=== PATIENT | female | born 1950 | race Caucasian/White ===

== ENCOUNTER → 2016-09-13 | Outpatient (CLI) | payer MEDICARE, OTHER ==
[~2016-09-13] MED LIST: RT-ALBUTEROL SULF 2.5 MG/3 ML PRE-MIX VIAL IH ONE; RT-ALBUTEROL SULF 2.5 MG/3 ML PRE-MIX VIAL ONE
== END ==
LOC: RT 15:48
PROVIDERS: ATTEND Internal Medicine
DX: R06.2 Wheezing (principal)
CPT/HCPCS: 94060; 94640; 94726; 94729

== ENCOUNTER → 2016-11-23 | Outpatient (CLI) | payer MEDICARE, OTHER ==
[~2016-11-23] MED LIST changes: +IOHEXOL 350 MG/ML 150 ML (OMNIPAQUE 350) VIAL IV ONE; +NS 100 ML (IVPB) BAG IV ONE; -RT-ALBUTEROL SULF 2.5 MG/3 ML PRE-MIX VIAL IH ONE; -RT-ALBUTEROL SULF 2.5 MG/3 ML PRE-MIX VIAL ONE
[2016-11-23 12:49] LABS: BASOPHILS % (AUTO) 1 % (0-10); EOSINOPHILS # (AUTO) 0.3 10^3/uL (0.0-0.3); EOSINOPHILS % (AUTO) 4 % (0-10); LYMPHOCYTES % (AUTO) 28 % (12-44); MEAN CORPUSCULAR HEMOGLOBIN 24 PG (25-34); MEAN CORPUSCULAR HGB CONC 33 G/DL (32-36); MEAN CORPUSCULAR VOLUME 73 FL (80-99); MEAN PLATELET VOLUME 9.8 FL (7.4-10.4); MONOCYTES # (AUTO) 0.6 X 10^3 (0.0-1.0); MONOCYTES % (AUTO) 9 % (0-12); NEUTROPHILS # (AUTO) 4.2 X 10^3 (1.8-7.8); NEUTROPHILS % (AUTO) 59 % (42-75); PLATELET COUNT 363 10^3/uL (130-400); RED BLOOD COUNT 4.96 10^6/uL (4.35-5.85); RED CELL DISTRIBUTION WIDTH 18.1 % (10.0-14.5); WHITE BLOOD COUNT 7.2 10^3/uL (4.3-11.0)
[2016-11-23 13:10] LABS: BILIRUBIN,TOTAL 0.3 MG/DL (0.1-1.0); CALCIUM 9.4 MG/DL (8.5-10.1); CREATININE SERUM 1.14 MG/DL (0.60-1.30); POTASSIUM 4.1 MMOL/L (3.6-5.0); TOTAL PROTEIN 7.1 GM/DL (6.4-8.2)
== END ==
LOC: RAD 12:21
PROVIDERS: ATTEND Nurse Practitioner Family
DX: K76.0 Fatty (change of) liver, not elsewhere classified (principal); R16.1 Splenomegaly, not elsewhere classified; R94.2 Abnormal results of pulmonary function studies
CPT/HCPCS: 36415; 71275; 80053; 83880; 85025

== ENCOUNTER 2016-12-02 20:26 | Outpatient (CLI) | payer MEDICARE, OTHER | END 2016-12-03 06:15 | disposition home or self-care (01) | LOC: SLEEP 20:26 | PROVIDERS: ATTEND Nurse Practitioner Family | DX: G47.33 Obstructive sleep apnea (adult) (pediatric) (principal); G47.10 Hypersomnia, unspecified; G47.50 Parasomnia, unspecified; R06.00 Dyspnea, unspecified | CPT/HCPCS: 95811 ==

== ENCOUNTER → 2016-12-17 | Outpatient (CLI) | payer MEDICARE, OTHER | LOC: CARD 09:53 | PROVIDERS: ATTEND Nurse Practitioner Family | DX: J84.9 Interstitial pulmonary disease, unspecified (principal); J98.4 Other disorders of lung; R94.2 Abnormal results of pulmonary function studies; R06.00 Dyspnea, unspecified | CPT/HCPCS: 93306 ==

== ENCOUNTER 2017-02-08 19:47 | Outpatient (CLI) | payer MEDICARE, OTHER | END 2017-02-09 06:15 | disposition home or self-care (01) | LOC: SLEEP 19:47 | PROVIDERS: ATTEND Nurse Practitioner Family | DX: G47.33 Obstructive sleep apnea (adult) (pediatric) (principal); G47.50 Parasomnia, unspecified; G47.10 Hypersomnia, unspecified | CPT/HCPCS: 95811 ==

== ENCOUNTER 2017-02-12 20:51 | Outpatient (CLI) | payer MEDICARE, OTHER | END 2017-02-13 05:50 | disposition home or self-care (01) | LOC: SLEEP 20:51 | PROVIDERS: ATTEND Nurse Practitioner Family | DX: G47.33 Obstructive sleep apnea (adult) (pediatric) (principal); G47.50 Parasomnia, unspecified; G47.10 Hypersomnia, unspecified | CPT/HCPCS: 95811 ==

== ENCOUNTER → 2018-04-24 | Outpatient (CLI) | payer MEDICARE, OTHER ==
[~2018-04-24] MED LIST changes: -IOHEXOL 350 MG/ML 150 ML (OMNIPAQUE 350) VIAL IV ONE; -NS 100 ML (IVPB) BAG IV ONE; +RT-ALBUTEROL SULF 2.5 MG/3 ML PRE-MIX VIAL INH ONE; +RT-ALBUTEROL SULF 2.5 MG/3 ML PRE-MIX VIAL ONE
== END ==
LOC: RT 08:33
PROVIDERS: ATTEND Nurse Practitioner Family
DX: R94.2 Abnormal results of pulmonary function studies (principal); J84.9 Interstitial pulmonary disease, unspecified; R53.83 Other fatigue; G47.10 Hypersomnia, unspecified; G47.33 Obstructive sleep apnea (adult) (pediatric); G47.50 Parasomnia, unspecified
CPT/HCPCS: 94060; 94726; 94729

== ENCOUNTER → 2018-05-30 | Outpatient (CLI) | payer MEDICARE, OTHER ==
[~2018-05-30] MED LIST changes: +HOLD METFORMIN - RECEIVED CONTRAST 20 ML VIAL IV SCH; +IOHEXOL 350 MG/ML 100 ML (OMNIPAQUE 350) VIAL IV ONE; -RT-ALBUTEROL SULF 2.5 MG/3 ML PRE-MIX VIAL INH ONE; -RT-ALBUTEROL SULF 2.5 MG/3 ML PRE-MIX VIAL ONE
[2018-05-30 08:16] LABS: CREATININE SERUM 1.1 MG/DL (0.60-1.30)
--- NOTE | 2018-05-30 10:13 | Diagnostic Imaging Report ---
PROCEDURE: CT chest with contrast only. TECHNIQUE: Multiple contiguous axial images were obtained through the chest after administration of intravenous contrast. Auto Exposure Controls were utilized during the CT exam to meet ALARA standards for radiation dose reduction. INDICATION: Chronic cough. FINDINGS: The previous CTA chest exam of 11/23/2016 failed to show any sign of an acute cardiopulmonary abnormality. On this study, there is still no defect within the pulmonary arteries to indicate a pulmonary embolus. The aorta is not abnormally dilated and there is no sign of a dissection. The heart size is within normal limits. Coronary artery calcifications are again noted. The lungs remain generally clear. There is still no sign of failure, pneumonia, or pleural effusion. There is no parenchymal lung mass identified either. The previous study did show a 9 mm right hilar node as well as a 14 x 19 mm subcarinal mass. On this exam, the node in the right infrahilar region now measures 8 mm while the subcarinal mass is estimated to be 13 x 15 mm. No other mediastinal or hilar adenopathy is noted. The thyroid gland, where visualized, is unremarkable There is no obvious breast mass. According to our records, the patient has not had a mammogram. If the patient has had a recent mammogram (within the last year), then no further imaging would be necessary. Otherwise, mammography would be recommended for further study. Sections through the upper abdomen again show hepatosplenomegaly. There is no acute abnormality identified. The bone windows are unremarkable for a fracture or a destructive lesion. IMPRESSION: 1. There is no evidence for an acute cardiopulmonary abnormality. In particular, there is no sign of a pulmonary embolus or dissection. 2. The nodes in the right infrahilar region and in the subcarinal area are unchanged when compared to the prior exam. 3. There is no obvious breast mass. Recommendations as above. Dictated by: Dictated on workstation # [id number]
== END ==
LOC: RAD 07:43
PROVIDERS: ATTEND Internal Medicine Critical Care Medicine
DX: I25.10 Atherosclerotic heart disease of native coronary artery without angina pectoris (principal); J98.4 Other disorders of lung; G47.9 Sleep disorder, unspecified; R16.2 Hepatomegaly with splenomegaly, not elsewhere classified; R06.02 Shortness of breath
CPT/HCPCS: 36415; 71260; 82565; 84520

== ENCOUNTER 2018-12-12 08:44 | Outpatient (RCR) | payer MEDICARE, OTHER ==
[2018-12-05 08:50] VITALS: BP 161/78
[2018-12-05] MEDS: FERRIC CARBOXYMALTOSE INJ 750 MG in NS (IVPB) 250 ML IV SCH (09:15)
[~2018-12-12] VITALS: Ht 172.7 cm; Wt 95.5 kg
[2018-12-12 09:02] VITALS: BP 152/72
[2018-12-12] MEDS: FERRIC CARBOXYMALTOSE INJ 750 MG in NS (IVPB) 250 ML IV SCH (09:17)
== END 2018-12-12 10:00 | disposition home or self-care (01) ==
LOC: SDC 08:44
PROVIDERS: ATTEND Internal Medicine
DX: E61.1 Iron deficiency (principal)
CPT/HCPCS: 96365

== ENCOUNTER → 2019-07-17 | Outpatient (CLI) | payer MEDICARE, OTHER ==
[~2019-07-17] MED LIST changes: +NS 100 ML (IVPB) BAG IV ONE
[2019-07-17 09:21] LABS: CREATININE SERUM 1.08 MG/DL (0.60-1.30)
--- NOTE | 2019-07-17 10:11 | Diagnostic Imaging Report ---
PROCEDURE: CT chest with contrast only. TECHNIQUE: Multiple contiguous axial images were obtained through the chest after administration of intravenous contrast. Auto Exposure Controls were utilized during the CT exam to meet ALARA standards for radiation dose reduction. INDICATION: Decreased diffusion capacity of the lung, shortness of air. COMPARISON: 05/30/2018 and 11/23/2016 FINDINGS: Previously noted mediastinal lymph nodes are again identified. These appear slightly more prominent than the prior examination. In particular, subcarinal lymph node measures 2.0 x 0.9 cm and previously this measured 1.8 x 0.9 cm. Right hilar lymph node measures 0.8 cm when previously measured 0.7 cm. Right infrahilar lymph node measures up to 1.0 cm in short dimension previously this measured up to 0.8 cm. No left hilar lymph nodes. No axillary adenopathy. Stable subcentimeter left thyroid nodule. Scattered vascular calcifications without aneurysmal dilatation of the thoracic aorta. The heart is within normal limits in size. No pericardial effusion. No pleural effusion. No pneumothorax. 5 mm left lower lobe pulmonary nodule is stable since 2017, therefore, benign. The lungs are otherwise clear. The trachea is patent. Cholecystectomy. Liver demonstrates diffusely decreased density. The spleen is mildly enlarged measuring 14.8 x 5.3 cm, similar to the prior exam. No acute osseous abnormality. IMPRESSION: Subcarinal and right infrahilar lymph nodes are again identified. These appear stable to minimally increased in size since 2017. Given very minimal change, this suggests a nonaggressive process. Stable mild splenomegaly. No acute abnormality. Dictated by: Dictated on workstation # [id number]
== END ==
LOC: RAD 08:48
PROVIDERS: ATTEND Nurse Practitioner Family
DX: J98.4 Other disorders of lung (principal); J84.9 Interstitial pulmonary disease, unspecified; G47.50 Parasomnia, unspecified; G47.33 Obstructive sleep apnea (adult) (pediatric); G47.10 Hypersomnia, unspecified; R16.1 Splenomegaly, not elsewhere classified; R53.83 Other fatigue; Z90.49 Acquired absence of other specified parts of digestive tract
CPT/HCPCS: 36415; 71260; 82565; 84520

== ENCOUNTER → 2020-01-25 | Outpatient (CLI) | payer MEDICARE, OTHER ==
[2020-01-25 08:23] LABS: BUN/CREATININE RATIO 24; GFR ESTIMATED > 60
--- NOTE | 2020-01-25 08:57 | Diagnostic Imaging Report ---
EXAMINATION: CT Chest with intravenous contrast. TECHNIQUE: Multiple contiguous axial images were obtained through the chest after the uneventful administration of intravenous contrast. All CT scans use one or more of the following dose optimizing techniques: automated exposure control, MA and/or KvP adjustment based on a patient size and exam type, or iterative reconstruction. HISTORY: Shortness of breath, restrictive lung disease. COMPARISON: 07/17/2019 FINDINGS: There is no edema or pneumonia. No pleural effusion. No pneumothorax. There is a 3 mm left lower lobe nodule which is unchanged. A few other tiny 2 to 3 mm peripheral nodules are also unchanged. There is no axillary or supraclavicular lymphadenopathy. A 12 mm subcarinal lymph node is unchanged. A 9 mm right hilar lymph node is unchanged. Heart size is normal. There are mild coronary artery calcifications. No pericardial effusion. Aorta is normal in caliber. Limited views of the upper abdomen show changes of cholecystectomy. There are no suspicious osseus lesions. IMPRESSION: 1. Stable tiny pulmonary nodules and minimally enlarged mediastinal lymph nodes consistent with a benign process, no specific follow-up is needed. Dictated by: Dictated on workstation # [id number]
== END ==
LOC: RAD 09:45
PROVIDERS: ATTEND Nurse Practitioner Family
DX: J44.9 Chronic obstructive pulmonary disease, unspecified (principal); R91.8 Other nonspecific abnormal finding of lung field; G47.33 Obstructive sleep apnea (adult) (pediatric); R59.1 Generalized enlarged lymph nodes
CPT/HCPCS: 36415; 71260; 82565; 84520

== ENCOUNTER → 2020-11-27 | Outpatient (CLI) | payer MEDICARE, OTHER ==
[~2020-11-27] MED LIST changes: +CATHETER FLUSH 10 ML SYR IV PRN
[2020-11-27 15:25] LABS: CREATININE SERUM 1.13 MG/DL (0.60-1.30)
--- NOTE | 2020-11-27 16:01 | Diagnostic Imaging Report ---
PROCEDURE: US Venous Lower Ext Joni. TECHNIQUE: Multiple real-time grayscale images were obtained over the lower extremities in various projections, bilaterally. Additional duplex Doppler and color Doppler images were also obtained. INDICATION: Dyspnea and bilateral leg pain. There is no evidence of right or left lower extremity DVT. Both lower extremity deep venous systems showed normal compressibility with normal response to augmentation and Valsalva. No fluid collection or mass is detected. IMPRESSION: No evidence of right or left lower extremity DVT. Dictated on workstation # [id number]
--- NOTE | 2020-11-27 17:01 | Diagnostic Imaging Report ---
PROCEDURE: CT angiography of the chest with contrast. TECHNIQUE: Multiple contiguous axial images were obtained through the chest after uneventful bolus administration of intravenous contrast. 3D reconstructed CTA MIP acquisitions were also performed. Auto Exposure Controls were utilized during the CT exam to meet ALARA standards for radiation dose reduction. INDICATION: Dyspnea. COMPARISON: January 25, 2020, and May 30, 2018. FINDINGS: Subcarinal lymph node measuring 1.1 cm in short dimension is again identified and not significantly changed from the prior exam. 0.8 cm right hilar lymph node is again identified. No new or increasing adenopathy within the chest. Scattered vascular calcifications. No aneurysmal dilatation of the thoracic aorta. The heart is within normal limits in size. No pericardial effusion. No pleural effusion. The trachea is patent. No pneumothorax. 0.5 cm left lower lobe pulmonary nodule is present, unchanged since May 2018 suggesting a benign etiology. Additional scattered tiny sub 0.3 cm pulmonary nodules are again identified, not significantly changed. No new suspicious pulmonary nodule. No significant filling defect within the central or segmental pulmonary arteries. Cholecystectomy. Mild hepatosplenomegaly is suggested. No acute osseous abnormality. IMPRESSION: No significant pulmonary embolus. Stable sub 0.6 cm pulmonary nodules. These have not significantly changed since 2019. No new pulmonary nodules. Unchanged mediastinal and hilar lymph nodes at the upper limits of normal in size. Mild hepatosplenomegaly. Dictated by: Dictated on workstation # [id number]
== END ==
LOC: RAD 14:41
PROVIDERS: ATTEND Nurse Practitioner Family
DX: Z03.89 Encounter for observation for other suspected diseases and conditions ruled out (principal); M79.89 Other specified soft tissue disorders; M79.605 Pain in left leg; M79.604 Pain in right leg; R91.8 Other nonspecific abnormal finding of lung field; R16.2 Hepatomegaly with splenomegaly, not elsewhere classified; R06.00 Dyspnea, unspecified
CPT/HCPCS: 36415; 71275; 82565; 84520; 93970

== ENCOUNTER → 2021-02-19 | Outpatient (CLI) | payer MEDICARE, OTHER ==
--- NOTE | 2021-02-19 13:15 | Diagnostic Imaging Report ---
EXAMINATION: US Lower Extremity Arterial Duplex Bilateral. TECHNIQUE: Multiple real-time grayscale images were obtained over both lower extremities in various projections. Additional duplex Doppler and color Doppler images were also obtained. HISTORY: PVD COMPARISON: None available. FINDINGS: Right lower extremity: A multiphasic waveform is seen throughout the right lower extremity arterial system to the level of the calves. There is a monophasic waveform in the distal posterior tibial artery and the dorsalis pedis. Left lower extremity: A multiphasic waveform is seen throughout the right lower extremity arterial system to the level of the calves. There is a monophasic waveform in the distal posterior tibial artery and the dorsalis pedis. IMPRESSION: 1. Monophasic waveforms in both dorsalis pedis and distal posterior tibial arteries. 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 Dictated by: Dictated on workstation # [id number]
== END ==
LOC: RAD 12:30
PROVIDERS: ATTEND Internal Medicine
DX: I73.9 Peripheral vascular disease, unspecified (principal)
CPT/HCPCS: 93922; 93925

== ENCOUNTER 2021-10-19 10:12 | Outpatient (RCR) | payer MEDICARE, OTHER ==
[2021-10-12 09:40] VITALS: BP 136/62
[2021-10-12] MEDS: IRON SUCROSE 200 MG/10 ML (VENOFER) VIAL IV SCH ×2 (09:54→10:45)
[2021-10-14 09:40] VITALS: BP 155/56
[2021-10-14] MEDS: IRON SUCROSE 200 MG/10 ML (VENOFER) VIAL IV SCH (10:32)
[2021-10-16] MEDS: IRON SUCROSE 200 MG/10 ML (VENOFER) VIAL IV SCH (10:00)
[2021-10-16 10:44] VITALS: BP 145/62
[~2021-10-19] VITALS: Wt 95.5 kg
[2021-10-19 10:00] VITALS: BP 137/65
[2021-10-19] MEDS: IRON SUCROSE 200 MG/10 ML (VENOFER) VIAL IV SCH ×2 (10:00→10:21)
[~2021-10-19 10:12] MED LIST changes: -CATHETER FLUSH 10 ML SYR IV PRN; -HOLD METFORMIN - RECEIVED CONTRAST 20 ML VIAL IV SCH; -IOHEXOL 350 MG/ML 100 ML (OMNIPAQUE 350) VIAL IV ONE; +IRON SUCROSE 200 MG/10 ML (VENOFER) VIAL IV ONE; -NS 100 ML (IVPB) BAG IV ONE
== END 2021-10-21 | disposition home or self-care (01) ==
LOC: SDC 10:12
PROVIDERS: ATTEND Internal Medicine
DX: E61.1 Iron deficiency (principal)
CPT/HCPCS: 96365

== ENCOUNTER 2021-10-28 13:19 | Outpatient (RCR) | payer MEDICARE, OTHER ==
[~2021-10-28] VITALS: Wt 95.5 kg
[2021-10-28 13:15] VITALS: BP 129/78
[2021-10-28] MEDS ORDERED: IRON SUCROSE 200 MG/10 ML (VENOFER) VIAL IV ONE (13:29)
[2021-10-28] MEDS ORDERED: IRON SUCROSE 200 MG/10 ML (VENOFER) VIAL IV SCH (15:00)
== END 2021-10-28 14:15 | disposition home or self-care (01) ==
LOC: SDC 13:19
PROVIDERS: ATTEND Internal Medicine
DX: E61.1 Iron deficiency (principal)
CPT/HCPCS: 96365

== ENCOUNTER → 2022-01-21 | Outpatient (CLI) | payer MEDICARE, OTHER ==
[2022-01-21 13:11] LABS: BASOPHILS # (AUTO) 0.1 10^3/uL (0.0-0.1); BASOPHILS % (AUTO) 1 % (0-10); EOSINOPHILS % (AUTO) 0 % (0-10); HEMATOCRIT 39 % (35-52); HEMOGLOBIN 12.3 g/dL (11.5-16.0); LYMPHOCYTES # (AUTO) 1.1 10^3/uL (1.0-4.0); LYMPHOCYTES % (AUTO) 9 % (12-44); MEAN CORPUSCULAR HEMOGLOBIN 25 pg (25-34); MEAN CORPUSCULAR HGB CONC 32 g/dL (32-36); MEAN CORPUSCULAR VOLUME 78 fL (80-99); MEAN PLATELET VOLUME 9.3 fL (9.0-12.2); MONOCYTES # (AUTO) 0.2 10^3/uL (0.0-1.0); MONOCYTES % (AUTO) 2 % (0-12); NEUTROPHILS # (AUTO) 10.4 10^3/uL (1.8-7.8); NEUTROPHILS % (AUTO) 85 % (42-75); PLATELET COUNT 274 10^3/uL (130-400); WHITE BLOOD COUNT 12.3 10^3/uL (4.3-11.0)
[2022-01-21 13:56] LABS: ERYTHROCYTE SEDIMENTATION RATE 13 MM/HR (0-30)
== END ==
LOC: WOUNDCARE 11:44
PROVIDERS: ATTEND Family Medicine
DX: I96 Gangrene, not elsewhere classified (principal); L97.518 Non-pressure chronic ulcer of other part of right foot with other specified severity; L97.528 Non-pressure chronic ulcer of other part of left foot with other specified severity; I70.235 Atherosclerosis of native arteries of right leg with ulceration of other part of foot; I70.245 Atherosclerosis of native arteries of left leg with ulceration of other part of foot; M20.41 Other hammer toe(s) (acquired), right foot; M20.42 Other hammer toe(s) (acquired), left foot; G90.09 Other idiopathic peripheral autonomic neuropathy; E66.01 Morbid (severe) obesity due to excess calories; D50.8 Other iron deficiency anemias; Z68.31 Body mass index [BMI] 31.0-31.9, adult
CPT/HCPCS: 82607; 82728; 82746; 83540; 85025; 85652; 86141; G0463; 36415; 99213

== ENCOUNTER → 2022-01-28 | Outpatient (CLI) | payer MEDICARE, OTHER | LOC: WOUNDCARE 10:56 | PROVIDERS: ATTEND Family Medicine | DX: I96 Gangrene, not elsewhere classified (principal); L97.518 Non-pressure chronic ulcer of other part of right foot with other specified severity; L97.528 Non-pressure chronic ulcer of other part of left foot with other specified severity; I70.235 Atherosclerosis of native arteries of right leg with ulceration of other part of foot; I70.245 Atherosclerosis of native arteries of left leg with ulceration of other part of foot; M20.41 Other hammer toe(s) (acquired), right foot; M20.42 Other hammer toe(s) (acquired), left foot; G90.09 Other idiopathic peripheral autonomic neuropathy; E66.01 Morbid (severe) obesity due to excess calories; D50.8 Other iron deficiency anemias; L03.116 Cellulitis of left lower limb; Z68.31 Body mass index [BMI] 31.0-31.9, adult | CPT/HCPCS: 99213 ==

== ENCOUNTER → 2022-02-04 | Outpatient (CLI) | payer MEDICARE, OTHER | LOC: WOUNDCARE 10:30 | PROVIDERS: ATTEND Family Medicine | DX: I70.245 Atherosclerosis of native arteries of left leg with ulceration of other part of foot (principal); L97.528 Non-pressure chronic ulcer of other part of left foot with other specified severity; M20.42 Other hammer toe(s) (acquired), left foot; G90.09 Other idiopathic peripheral autonomic neuropathy; E66.01 Morbid (severe) obesity due to excess calories; D50.8 Other iron deficiency anemias; L03.116 Cellulitis of left lower limb; L97.422 Non-pressure chronic ulcer of left heel and midfoot with fat layer exposed; I96 Gangrene, not elsewhere classified | CPT/HCPCS: 11042; A6197; G0463 ==

== ENCOUNTER → 2022-02-18 | Outpatient (CLI) | payer MEDICARE, OTHER | LOC: WOUNDCARE 09:21 | PROVIDERS: ATTEND Family Medicine | DX: L97.528 Non-pressure chronic ulcer of other part of left foot with other specified severity (principal); L97.422 Non-pressure chronic ulcer of left heel and midfoot with fat layer exposed; I70.245 Atherosclerosis of native arteries of left leg with ulceration of other part of foot; M20.42 Other hammer toe(s) (acquired), left foot; G90.09 Other idiopathic peripheral autonomic neuropathy; E66.01 Morbid (severe) obesity due to excess calories; D50.8 Other iron deficiency anemias; I96 Gangrene, not elsewhere classified | CPT/HCPCS: 11042; G0463 ==

== ENCOUNTER → 2022-02-24 | Outpatient (CLI) | payer MEDICARE, OTHER ==
[2022-02-24 12:05] LABS: ALBUMIN 3.8 GM/DL (3.2-4.5); BILIRUBIN,TOTAL 0.3 MG/DL (0.1-1.0); CALCIUM 8.8 MG/DL (8.5-10.1); CREATININE SERUM 0.86 MG/DL (0.60-1.30); POTASSIUM 3.5 MMOL/L (3.6-5.0); TOTAL PROTEIN 6.6 GM/DL (6.4-8.2)
== END ==
LOC: WOUNDCARE 10:48
PROVIDERS: ATTEND Family Medicine
DX: L97.528 Non-pressure chronic ulcer of other part of left foot with other specified severity (principal); I70.245 Atherosclerosis of native arteries of left leg with ulceration of other part of foot; M20.42 Other hammer toe(s) (acquired), left foot; G90.09 Other idiopathic peripheral autonomic neuropathy; E66.01 Morbid (severe) obesity due to excess calories; D50.8 Other iron deficiency anemias; L03.032 Cellulitis of left toe; I96 Gangrene, not elsewhere classified
CPT/HCPCS: 11042; 80053; G0463; 36415

== ENCOUNTER → 2022-02-25 | Outpatient (CLI) | payer MEDICARE, OTHER ==
[~2022-02-25] MED LIST changes: +GADOTERATE 0.5 MMOL/ML (CLARISCAN) 20 ML VIAL IV ONE; -IRON SUCROSE 200 MG/10 ML (VENOFER) VIAL IV ONE
--- NOTE | 2022-02-25 15:02 | Diagnostic Imaging Report ---
Exam: MRI left foot without and with intravenous contrast. Date: February. Indication: 71-year-old female, ulcer on the lateral aspect of the left foot near the fourth toe. Comparison: None. Technique: Multiple pre and post contrast MRI sequences of the left foot were obtained. Findings: There is T1 marrow signal loss, marrow edema, and enhancement involving the fourth distal phalanx with marrow signal abnormalities extending to its articulating surface. This is consistent with osteomyelitis. There is adjacent abnormal signal and enhancement in the soft tissues without identified focal fluid collection or abscess. There is no evidence to suggest osteomyelitis of the fourth middle or proximal phalanges. There is fatty muscle atrophy most likely relating to polyneuropathy. The imaged tendons are intact and without evidence of tenosynovitis. The visualized portions of the plantar fascia are intact. 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 The fourth and fifth tarsometatarsal articulations are not in the included [id number]. There is susceptibility artifact in the medial soft tissues at the level of the mid to distal aspect of the fourth proximal phalanx. This is projecting near the skin surface. This potentially could reflect a foreign body or soft tissue gas. Recommend correlation. The joint spaces are well preserved. There is no identified joint effusion. Impression: 1. Osteomyelitis involving the fifth distal phalanx. 2. Soft tissue edema and enhancement in the soft tissues of the fourth digit without focal fluid collection or abscess. 3. No evidence of tenosynovitis. 4. Area of susceptibility in the medial soft tissues at the level of the mid to distal aspect of the fourth proximal phalanx which could reflect a foreign body or soft tissue gas. Correlation with radiographs and exam may be of benefit. Dictated by: Dictated on workstation # [id number]
== END ==
LOC: RAD 12:41
PROVIDERS: ATTEND Family Medicine
DX: I70.245 Atherosclerosis of native arteries of left leg with ulceration of other part of foot (principal); L97.528 Non-pressure chronic ulcer of other part of left foot with other specified severity; M20.42 Other hammer toe(s) (acquired), left foot; G90.09 Other idiopathic peripheral autonomic neuropathy; E66.01 Morbid (severe) obesity due to excess calories; D50.8 Other iron deficiency anemias; M86.172 Other acute osteomyelitis, left ankle and foot; R60.0 Localized edema
CPT/HCPCS: 73720

== ENCOUNTER → 2022-03-01 | Outpatient (CLI) | payer MEDICARE, OTHER | LOC: WOUNDCARE 10:24 | PROVIDERS: ATTEND Family Medicine | DX: I70.245 Atherosclerosis of native arteries of left leg with ulceration of other part of foot (principal); I96 Gangrene, not elsewhere classified; L97.528 Non-pressure chronic ulcer of other part of left foot with other specified severity; L03.032 Cellulitis of left toe; M20.42 Other hammer toe(s) (acquired), left foot; M86.172 Other acute osteomyelitis, left ankle and foot; G90.09 Other idiopathic peripheral autonomic neuropathy; D50.8 Other iron deficiency anemias; E66.01 Morbid (severe) obesity due to excess calories; Z68.31 Body mass index [BMI] 31.0-31.9, adult | CPT/HCPCS: 99212 ==